=== PATIENT | female | born 1970 | race Caucasian/White ===

== ENCOUNTER → 2020-02-28 | Day surgery (SDC) | payer OTHER ==
[~2020-02-28] VITALS: Ht 172.7 cm; Wt 94.1 kg
[~2020-02-28] MED LIST: ACETAMINOPHEN 500 MG TABLET PO ONE; BUPIVACAINE/PF 0.25% ONE; CEFAZOLIN 1,000 MG ONE; CHLORHEXIDINE 15 ML UDC MM ONE; DEXAMETHASONE 4 MG/ML, 1ML ONE; EPHEDRINE 50 MG/ML, 1ML IVPush PRN; EPINEPHRINE 1 MG/ML, 1ML ONE; ESTROGENS CONJUGATED VAG CRM 0.625MG/1G, 30GM ONE; FENTANYL PF 100 MCG/2ML IV PRN; FENTANYL PF 250 MCG/5ML ONE; FLUORESCEIN SODIUM 500 MG/5 ML ONE; HYDROmorphone 1 MG/ML, 1ML INJ IVPush PRN; KETOROLAC 30 MG/1 ML ONE; LABETALOL 5MG/ML, 20ML IV PRN; LACTATED RINGERS 1,000 ML IV SCH; LIDOCAINE-MPF 1%, 2ML INFIL ONE; LIDOCAINE-MPF 2% ,5ML ONE; MEPERIDINE/PF 25MG/0.5ML IVPush PRN; MIDAZOLAM 1 MG/ML, 2ML ONE; ONDANSETRON 2MG/ML, 2ML IVPush PRN; ONDANSETRON 2MG/ML, 2ML ONE; OXYcodone 5 MG/5 ML ORAL.SOL UDC PO PRN; PLEASE ENTER ALLERGIES MC SCH; PROMETHAZINE 25 MG/ML, 1ML IVPush PRN; PROPOFOL 10 MG/ML, 20ML ONE; ROCURONIUM 10MG/ML,5ML ONE; SODIUM CHLORIDE 0.9% PF 10ML ONE; SUCCINYLCHOLINE 20 MG/ML, 10ML ONE; SUGAMMADEX 200 MG/2 ML IVPush ONE; hydrALAzine 20 MG/ML, 1ML IV PRN
[2020-02-28 06:09] VITALS: BP 128/84
[2020-02-28 07:00] LABS: HCG UR SG 1.018 (1.003-1.030); MICROSCOPIC AUTO
[2020-02-28 07:01] LABS: MEAN CORPUSCULAR HEMOGLOBIN 17.8 pg (27.0-34.8); MEAN CORPUSCULAR VOLUME 59.9 fL (80-100); MEAN PLATELET VOLUME 9.6 fL (7.4-10.4); PLATELET COUNT 398 x10^3/uL (130-400); RED BLOOD COUNT 4.74 x10^6/uL (3.82-5.3); RED CELL DISTRIBUTION WIDTH 23.8 % (9.6-15.2)
[2020-02-28 07:19] LABS: MD YES; MEAN CORPUSCULAR HGB CONC 29.8 g/dL (32.4-35.8)
[2020-02-28 07:21] LABS: ANISOCYTOSIS 2+; EOS#(MANUAL) 0.35 x10^3/uL (0.0-0.4); EOS% (MANUAL) 5 % (1-7); LYMPH#(MANUAL) 1.52 x10^3/uL (1-3.4); LYMPHS% (MANUAL) 22 % (22-44); MICROCYTOSIS 2+; MONOS#(MANUAL) 0.14 x10^3/uL (0.3-2.7); MONOS% (MANUAL) 2 % (2-9); SEGS% (MANUAL) 71 % (42-75)
[2020-02-28 07:22] LABS: <PLATELET ESTIMATE> ADEQUATE; <PLT MORPHOLOGY> NORMAL PLT MORPH; HYPOCHROMIA 2+; OVALOCYTES 1+; POLYCHROMASIA 1+; TARGET CELLS 1+
== END | disposition home or self-care (01) ==
LOC: OUT 05:44
PROVIDERS: ATTEND Obstetrics & Gynecology
DX: N93.9 Abnormal uterine and vaginal bleeding, unspecified (principal); Z11.59 Encounter for screening for other viral diseases; D25.1 Intramural leiomyoma of uterus; N81.2 Incomplete uterovaginal prolapse; N83.02 Follicular cyst of left ovary; N83.01 Follicular cyst of right ovary; Z98.51 Tubal ligation status; Z98.890 Other specified postprocedural states
CPT/HCPCS: 36415; 57260; 58552; 81001; 81025; 85025; 86850; 86900; 87635; 88307; J0171; J0330; J0690; J1100; J1885; J2250; J2405; J2704; J3010; J3490; J7120; S2900

== ENCOUNTER 2021-03-22 15:14 | Emergency (ER) | payer OTHER ==
[~2021-03-22] VITALS: Ht 172.7 cm; Wt 94.0 kg
[2021-03-22 15:19] VITALS: BP 136/96
--- NOTE | 2021-03-22 15:47 | NUR ---
C/O RIGHT SHOULDER PAIN X4 DAYS. DENIES TRAUMA.
[2021-03-22] MEDS ORDERED: KETOROLAC 30 MG/1 ML IM ONE (16:00)
[2021-03-22] MEDS ORDERED: ACETAMINOPHEN 500 MG TABLET PO ONE (16:00)
[2021-03-22] MEDS ORDERED: ACETAMINOPHEN 500 MG TABLET ONE (16:01)
[2021-03-22] MEDS ORDERED: KETOROLAC 30 MG/1 ML ONE (16:01)
== END 2021-03-22 16:12 | disposition home or self-care (01) ==
LOC: ED 16:10
DX: S43.401A Unspecified sprain of right shoulder joint, initial encounter (principal); X58.XXXA Exposure to other specified factors, initial encounter; Y93.89 Activity, other specified; Y92.009 Unspecified place in unspecified non-institutional (private) residence as the place of occurrence of the external cause; Y99.8 Other external cause status
CPT/HCPCS: 73030; 96372; 99283; J1885